=== PATIENT | female | born 1980 | race Caucasian/White ===

== ENCOUNTER 2018-02-08 11:31 | Day surgery (SDC) | payer OTHER ==
[2018-02-07 14:00] LABS: ABSOLUTE EOSINOPHILS # (AUTO) 0.1 10^3/uL (0.0-0.6); ABSOLUTE MONOCYTES (AUTO) 0.5 10^3/uL (0.1-1.4); ABSOLUTE NEUT (AUTO) 4.4 10^3/uL (1.7-8.2); BASOPHILS % (AUTO) 0.4 % (0-2); EOSINOPHILS % (AUTO) 0.9 % (0-6); HEMATOCRIT 42.4 % (36.0-47.0); HEMOGLOBIN 14.5 g/dL (12.0-15.5); LYMPHOCYTES % (AUTO) 28.6 % (13-45); MEAN CORPUSCULAR HEMOGLOBIN 31.9 pg (27.0-33.4); MEAN CORPUSCULAR HGB CONC 34.2 g/dL (32.0-36.0); MEAN CORPUSCULAR VOLUME 93 fl (80-97); MONOCYTES % (AUTO) 6.9 % (3-13); PLATELET COUNT 251 10^3/uL (150-450); RED BLOOD COUNT 4.54 10^6/uL (3.72-5.28); SEGMENTED NEUTROPHILS % (AUTO) 63.2 % (42-78); TOTAL CELLS COUNTED % (AUTO) 100 %; WHITE BLOOD COUNT 6.9 10^3/uL (4.0-10.5)
[2018-02-07 14:05] LABS: APPEARANCE,URINE CLEAR; BILIRUBIN,URINE NEGATIVE (NEGATIVE); COLOR,URINE YELLOW; GLUCOSE, URINE NEGATIVE (NEGATIVE); KETONES,URINE 20 mg/dL (NEGATIVE); LEUKOCYTE ESTERASE,URINE NEGATIVE (NEGATIVE); NITRITE,URINE NEGATIVE (NEGATIVE); PROTEIN,URINE NEGATIVE (NEGATIVE); UROBILINOGEN,URINE NEGATIVE mg/dL (<2.0)
[~2018-02-08 11:31] MED LIST: BUPIVACAINE HCL 0.5 % INJ/PF 30 ML SDV ONE; CEFAZOLIN 1 GM/D5W RTU 1 GM/50 ML RTUPB IV PRN; LIDOCAINE 2% INJ (20 MG/ML) 20 ML MDV ONE
[2018-02-08] MEDS ORDERED: MIDAZOLAM 2 MG/2 ML INJ ONE (12:07)
[2018-02-08] MEDS ORDERED: DIPHENHYDRAMINE HCL 50 MG/ML VIAL ONE (12:07)
[2018-02-08] MEDS ORDERED: KETOROLAC TROMETHAMINE 60 MG/2 ML SDV ONE (12:08)
[2018-02-08] MEDS ORDERED: FENTANYL CITRATE INJ/PF 100 MCG/2 ML AMPUL ONE (12:08)
[2018-02-08] MEDS ORDERED: PROPOFOL INJ 200 MG/20 ML VIAL IV ONE (12:08)
--- NOTE | 2018-02-08 15:11 | RADIOLOGY REPORT (SQ) ---
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 FLUOROSCOPY TIME: For 0.3 seconds 2 Images saved to PACS TECHNIQUE: Intra-operative images acquired during surgical procedure to evaluate progress. NUMBER OF IMAGES: 2 LIMITATIONS: None. FINDINGS: Hardware distal seconds metatarsal. IMPRESSION: IMAGE(S) OBTAINED DURING PROCEDURE. COMMENT: Quality ID [id number]: Final reports for procedures using fluoroscopy that document radiation exp osure indices, or exposure time and number of fluorographic images (if radiation exposure indices are not available) Please consult full operative report of the attending physician for description of the procedure. TECHNICAL DOCUMENTATION: JOB ID: [id number] [employer]- All Rights Reserved Reading location - IP/workstation name: [email or web address]
--- NOTE | 2018-02-08 15:11 | RADIOLOGY REPORT (SQ) ---
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 FLUOROSCOPY TIME: For 0.3 seconds 2 Images saved to PACS TECHNIQUE: Intra-operative images acquired during surgical procedure to evaluate progress. NUMBER OF IMAGES: 2 LIMITATIONS: None. FINDINGS: Hardware distal seconds metatarsal. IMPRESSION: IMAGE(S) OBTAINED DURING PROCEDURE. COMMENT: Quality ID [id number]: Final reports for procedures using fluoroscopy that document radiation exp osure indices, or exposure time and number of fluorographic images (if radiation exposure indices are not available) Please consult full operative report of the attending physician for description of the procedure. TECHNICAL DOCUMENTATION: JOB ID: [id number] [employer]- All Rights Reserved Reading location - IP/workstation name: [email or web address]
--- NOTE | 2018-02-14 08:39 | [facility] OPERATIVE REPORT E ---
[facility] Oper[facility] Report NAME: GUERO JONSE AGE: 37Y DATE OF SURGERY: 02/08/2018 ROOM: PREOPERATIVE DIAGNOSIS: 1. Long and plantarflex second metatarsal, right foot. 2. Flexible hammer digit syndrome, second toe right foot. POSTOPERATIVE DIAGNOSIS: 1. Long and plantarflex second metatarsal, right foot. 2. Flexible hammer digit syndrome, second toe right foot. OPERATION: 1. Iggy's osteotomy second metatarsal head right foot. 2. Phalangectomy, second toe right foot. SURGEON: JOHAN MULLIGAN D.P.M. ANESTHESIA: Local. FINDINGS: 1. Intraoperative findings indicated a long and plantarflex second metatarsal which has created tremendous pressure pain on the plantar aspect of the second metatarsophalangeal joint, now the pain has been extremely incapacitating to the point that the patient cannot bear weight normally during walking. 2. Flexible hammering of the second toe at the proximal interphalangeal joint without the formation of hyperkeratoma over the second toe. intraoperative findings were from clinically and radiographically. PROCEDURE: With the patient laying in the dorsal recumbent position, right foot and leg were prepped and draped in the usual standard sterile orthopedic manner after the local anesthesia was administered which was a total ankle block. after the anesthetic effect was accomplished, the right leg was elevated for approximately 2 minutes of time and the right ankle pneumatic tourniquet was inflated up to 250 mmHg after the blood was exsanguinated from the right foot. The right leg was brought to the level of the table and attention was directed right over the dorsal aspect of the right foot. A curvilinear incision was placed right over the second metatarsophalangeal joint. The initial incision was deepened. The superficial and deep subcutaneous tissues were dissected with blunt and sharp dissection. This dissection was carried until the capsular structures of the second metatarsophalangeal joint were brought into the surgical field. By this time, all bleeders were ligated and all vital structures were identified and protected from surgical trauma. Next, a vertical capsulotomy was performed. Capsule and periosteal structures were dissected to all bone and the head of the second metatarsophalangeal joint was brought into the surgical field. At this point, osteotomy was performed which was executed from anterior-posterior direction, the head of the second metatarsal. The osteotomy was performed to the upper one-third of the head of the second metatarsal. The osteotomy was parallel to the long axis of the second metatarsal. At this point, the osteotomy was completed and plantar two-thirds of the fragment of the head of the second metatarsal was placed proximally. Displacement was about 3 mm which was necessary in order to shorten the second metatarsal. The level of displacement was obtained from the x-ray and it measured around 3 mm of shortening of the second metatarsal. With the capital fragment which was the plantar two-thirds of the head of the second metatarsal in its new anatomical position, a K-wire was introduced from dorsal plantar direction to stabilize the capital fragment and after that the osteotomy was fixated with two screws. The double fixation was necessary to stabilize the fragment and to prevent rotation of the capital fragment. We used the Quick fix fixation apparatus to accomplish the internal fixation of the osteotomy. At this point, intraoperative x-rays were obtained. The correction was extremely satisfactory. Next, the protruding dorsal one-third of the head of the second metatarsal was resected. The second toe was evaluated at this point and continued to exhibit hammering deformity at the proximal interphalangeal joint and decision was made to correct the deformity and allow the second toe to acquire a rectus position. A curvilinear incision was placed right over the second toe. The initial incision was deepened. The superficial and deep subcutaneous tissues were dissected with blunt and sharp dissection. This dissection was carried until the capsule structures were brought into the surgical field. At this point, all bleeders were irrigated. The neurovascular bundles on the medial and lateral aspect of the second toe were protected from surgical trauma. Next, a vertical capsulotomy was performed right through the mid-section of the extensor digitorum longus tendon to the second toe. The tendinous stitch was retracted. The capsular structures around the proximal interphalangeal joint were resected and the head of the proximal phalanx of the second toe was brought into the surgical field. At this point, a partial phalangectomy was performed. Enough bone was removed to allow the second toe to acquire a rectus position. After completion of the procedure, the second toe was realigned. At this point, final evaluation was conducted of all surgical sites and correction was extended satisfactory. The right ankle pneumatic tourniquet was deflated. Circulation to the second toe returned to normal immediately as the normal digital color and temperature became apparent. At this point, the surgical sites were irrigated with copious amounts of sterile saline solution. The capsular structures around the second metatarsophalangeal joint and the proximal interphalangeal joint were closed with 3-0 Vicryl. The subcutaneous tissues were closed from deep to superficial with 3-0 Vicryl. The skin edges were repositioned and coapted with utilization of 4-0 nylon continuous Interlock stitch. Betadine compression dressing was applied around the right foot which followed with Baljinder bandage and a surgical shoe. The patient tolerated the procedures well and left the operating room with stable vital signs and in good condition. The patient was taken to the recovery room alert, conscious and oriented. There are no permanent disabilities anticipated at this time. The immediate postoperative recovery was also very uneventful. The patient was sent home with instructions for postoperative care at home. The patient was given instruction for pain medicine and the antibiotics postoperatively. The patient was advised to start exercising immediately in order to prevent formation of blood clots. The patient was instructed to resume normal regular meals at dinner time. The patient strongly instructed not to bear any weight on the right foot and to ambulate with crutches. This patient was sent home again with stable vital signs and in good condition. DICTATING PHYSICIAN: JOHAN MULLIGAN D.P.M. [id number] PHY#: [id number] ID: [id number] JOB#: [id number] ACCT: [id number] cc:JOHAN MULLIGAN D.P.M. >
== END 2018-02-08 14:39 | disposition home or self-care (01) ==
LOC: SC 11:31
PROVIDERS: ATTEND Podiatrist Foot & Ankle Surgery
DX: M20.41 Other hammer toe(s) (acquired), right foot (principal); M21.961 Unspecified acquired deformity of right lower leg; Z88.6 Allergy status to analgesic agent; Z86.14 Personal history of Methicillin resistant Staphylococcus aureus infection
CPT/HCPCS: 28308; 28150; 36415; 85025; 81001; 73620; C1713 ×3; J2250; J3490 ×2; J0690; J1200; J1885; J3010; J2704; 01480

== ENCOUNTER 2020-08-09 07:49 | Day surgery (SDC) | payer OTHER ==
[~2020-08-09 07:49] MED LIST changes: -BUPIVACAINE HCL 0.5 % INJ/PF 30 ML SDV ONE; -CEFAZOLIN 1 GM/D5W RTU 1 GM/50 ML RTUPB IV PRN; -LIDOCAINE 2% INJ (20 MG/ML) 20 ML MDV ONE; +PROPOFOL INJ 200 MG/20 ML VIAL IV ONE
--- NOTE | 2020-08-09 09:58 | Operative Report ---
Operative Report DATE OF SURGERY: 08/09/20 Operative Report: The risk, benefits and alternatives of the procedure including the risks of bleeding, perforation requiring surgery have been explained to the patient in detail and informed consent has been obtained. The patient is placed in the left, lateral decubital position. Timeout was called. Propofol medication is administered. Rectal examination is done which did not reveal any masses, tears or fissures. An Olympus videoscope was introduced into the patient's rectum. Scope was then carefully advanced all the way to the cecum. Cecum was identified by the usual anatomical landmarks of the ileocecal valve as well as the appendiceal office. Photodocumentation is obtained. Scope was then sequentially pulled back via the various segments of the colon including the ascending colon, hepatic flexure, transverse colon, splenic flexure, descending colon and finally into the rectosigmoid portions of the colon. Retroflexion maneuvers performed. The risks benefits and alternatives of the procedure explained to the patient in detail and informed consent is obtained.A GIF Olympus video scope was inserted into the patient's mouth and hypopharynx, the esophagus is identified intubated and insufflated, the scope was then advanced through the esophagus stomach and duodenum, retroflexion maneuver is done the esophagus stomach and first and second portions of the duodenum examined PREOPERATIVE DIAGNOSIS: Change in bowel habits. Epigastric pain POSTOPERATIVE DIAGNOSIS: Gastric erosions status post biopsy. Right colon inflammation status post biopsy. Internal hemorrhoids. Mild duodenitis OPERATION: Colonoscopy with biopsy. EGD with biopsy SURGEON: TONO CARUSO ANESTHESIA: LMAC TISSUE REMOVED OR ALTERED: As noted above. COMPLICATIONS: None. ESTIMATED BLOOD LOSS: None. INTRAOPERATIVE FINDINGS: As noted above. PROCEDURE: Patient tolerated the procedure well. No immediate postprocedure complications are noted. Patient is discharged in good condition. Discharge date 08/09/2020. Discharge diet: Regular. Discharge activity: Regular. 2 to 3-week follow-up to discuss findings. Patient is instructed call the office or proceed to the emergency room should there be any further problems or questions. Wait on the pathology.
[2020-08-09 10:35] VITALS: BP 132/68
== END 2020-08-09 11:15 | disposition home or self-care (01) ==
LOC: END 07:49
PROVIDERS: ATTEND Internal Medicine Gastroenterology
DX: K31.9 Disease of stomach and duodenum, unspecified (principal); K64.8 Other hemorrhoids; K29.80 Duodenitis without bleeding; F17.210 Nicotine dependence, cigarettes, uncomplicated; Z79.899 Other long term (current) drug therapy
CPT/HCPCS: 43239; 45380; 88305 ×2; J2704; 813